=== PATIENT | female | born 1935 | race Caucasian/White ===

== ENCOUNTER → 2025-03-30 13:40 | Outpatient (REF) | payer MEDICARE, SELFPAY | LOC: HWRAD 13:40 | PROVIDERS: ATTENDING PHYSICIAN Nurse Practitioner Primary Care | DX: I65.23 Occlusion and stenosis of bilateral carotid arteries (principal); Z98.890 Other specified postprocedural states; R09.89 Other specified symptoms and signs involving the circulatory and respiratory systems | CPT/HCPCS: 93880 ==

== ENCOUNTER → 2025-04-27 12:04 | Outpatient (REF) | payer MEDICARE, SELFPAY | LOC: HWRAD 12:04 | PROVIDERS: ATTENDING PHYSICIAN Nurse Practitioner Primary Care | DX: M54.50 Low back pain, unspecified (principal) | CPT/HCPCS: 72100 ==